=== PATIENT | female | born 1950 | race Caucasian/White ===

== ENCOUNTER 2017-04-22 08:02 | Emergency (ER) | payer MEDICARE, OTHER ==
[2017-04-22] MEDS ORDERED: Sodium Chloride 0.9% 1,000 ML IV STA (08:33)
--- NOTE | 2017-04-22 08:55 | ED PDOC ---
HPI: General Adult Time Seen by Provider: 04/22/17 08:14 Chief Complaint (Nursing): Back Pain Chief Complaint (Provider): Neck Pain Radiating to Back History Per: Patient History/Exam Limitations: no limitations Onset/Duration Of Symptoms: Days (x7 days) Current Symptoms Are (Timing): Still Present Additional Complaint(s): kaylah Menon, a 67 year old female, presents to the ED complaining of neck pain that radiates to the back x7 days. The patient states that in 2013 she had similar pains about her body but never in her neck. She reports that she has taken nothing for pain. Denies history of neck injuries. Past Medical History Reviewed: Historical Data, Nursing Documentation, Vital Signs Vital Signs: Last Vital Signs Temp 99 F 04/22/17 08:07 Pulse 91 H 04/22/17 08:07 Resp BP 132/71 04/22/17 08:07 Pulse Ox 99 04/22/17 11:23 - Medical History PMH: No Chronic Diseases - Surgical History Surgical History: Appendectomy - Family History Family History: States: Unknown Family Hx - Living Arrangements Living Arrangements: Alone - Social History Current smoker - smoking cessation education provided: No Ex-Smoker (has not smoked in the last 12 months): No Alcohol: None Drugs: Denies - Home Medications Home Medications: Ambulatory Orders Medication Instructions Recorded Acetaminophen [Tylenol 325mg tab] 650 mg PO Q6H PRN #50 tab 04/22/17 Cyclobenzaprine [Cyclobenzaprine 10 mg PO TID PRN #30 tab 04/22/17 HCl] - Allergies Allergies/Adverse Reactions: Allergies Allergy/AdvReac Type Severity Reaction Status Date / Time steroid AdvReac VOMITING Uncoded 03/14/16 11:59 Review of Systems ROS Statement: Except As Marked, All Systems Reviewed And Found Negative Musculoskeletal: Positive for: Neck Pain (neck pain radiating to back) Physical Exam - Reviewed Nursing Documentation Reviewed: Yes Vital Signs Reviewed: Yes - Physical Exam Appears: Positive for: Non-toxic (In mild discomfort due to pain in neck) Head Exam: Positive for: ATRAUMATIC, NORMAL INSPECTION, NORMOCEPHALIC Skin: Positive for: Normal Color, Warm, Dry. Negative for: Rash Eye Exam: Positive for: Normal appearance, EOMI, PERRL. Negative for: Nystagmus ENT: Positive for: Normal ENT Inspection. Negative for: Nasal Congestion, Tonsillar Exudate Neck: Positive for: Supple, Decreased ROM (decreased ROM seconday to pain), Pain On Movement Of Neck. Negative for: Normal (Palpable tenderness along Para spinal muscles of neck and trapezius), Painless ROM Cardiovascular/Chest: Positive for: Regular Rate, Rhythm, Chest Non Tender. Negative for: Tachycardia Respiratory: Positive for: Normal Breath Sounds. Negative for: Rales, Rhonchi, Wheezing, Respiratory Distress Gastrointestinal/Abdominal: Positive for: Normal Exam, Bowel Sounds, Soft. Negative for: Tenderness, Guarding, Rebound Back: Positive for: Normal Inspection. Negative for: L CVA Tenderness, R CVA Tenderness Extremity: Positive for: Normal ROM (Full ROM of all extremities). Negative for : Tenderness, Calf Tenderness, Deformity, Swelling Neurologic/Psych: Positive for: Alert, Oriented, Gait - Laboratory Results Result Diagrams: 04/22/17 08:55 04/22/17 08:55 - ECG O2 Sat by Pulse Oximetry: 99 (RA) Pulse Ox Interpretation: Normal Medical Decision Making Medical Decision Makin Initial Impression: 67 year old female presenting to ED with b/l neck pain radiating to back Initial Plan: * Basis Metabolic Panel * CBC * CT Cervical Spine Complete * flexeril 10mg PO * NS 1000mls IV 1000mls/hr * Toradol 30mg IVP * reevaluation * 11.05a - patient is feeling better. Able to move neck better. x-rays and labs reviewed will discharge Disposition - Clinical Impression Clinical Impression: OA (osteoarthritis) of neck - Patient ED Disposition Is Patient to be Admitted: No Doctor Will See Patient In The: Office Counseled Patient/Family Regarding: Need For Followup, Rx Given - Disposition Referrals: Hernandez Randall MD [Staff Provider] - Disposition: Routine/Home Disposition Time: 11:26 Condition: IMPROVED Prescriptions: Acetaminophen [Tylenol 325mg tab] 650 mg PO Q6H PRN #50 tab PRN Reason: Pain, Mild (1-3) Cyclobenzaprine [Cyclobenzaprine HCl] 10 mg PO TID PRN #30 tab PRN Reason: Pain, Moderate (4-7) Instructions: Arthritis (ED) Forms: [employer] (Al[place]ian) - POA Present On Arrival: Falls Or Trauma
[2017-04-22 09:17] LABS: BASO # 0.1 K/uL (0.0-0.2); BASO % 0.4 % (0.0-2.0); EOS % 0.2 % (0.0-4.0); HEMATOCRIT 36.6 % (34.0-47.0); LYMPH # 1.4 K/uL (1.0-4.3); LYMPH % 11.4 % (20.0-40.0); MEAN CELL VOLUME 88.3 fl (81.0-99.0); MEAN CORPUSCULAR HEMOGLOBIN 29.9 pg (27.0-31.0); MEAN CORPUSCULAR HGB CONC 33.9 g/dL (33.0-37.0); MEAN PLATELET VOLUME 6.7 fl (7.2-11.7); MONO # 1.4 K/uL (0.0-0.8); MONO % 10.9 % (0.0-10.0); NEUT # 9.6 K/uL (1.8-7.0); NEUT % 77.1 % (50.0-75.0); NRBC % 0.1 % (0.0-0.0); RED CELL DISTRIBUTION WIDTH 12.8 % (11.5-14.5); WHITE BLOOD COUNT 12.5 K/uL (4.8-10.8)
[2017-04-22 09:20] LABS: BLOOD UREA NITROGEN 10 mg/dl (7-17); CALCIUM 9.9 mg/dL (8.4-10.2); CARBON DIOXIDE 27 mmol/L (22-30); CHLORIDE 98 mmol/L (98-107); GFR AFRICAN-AMERICAN > 60; GLUCOSE,RANDOM 114 mg/dL (65-105); SODIUM 140 mmol/l (132-148)
--- NOTE | 2017-04-22 10:53 | RAD ---
PROCEDURE: Cervical Spine Radiographs. HISTORY: Pain. COMPARISON: None. FINDINGS: BONES: There is no evidence of acute displaced fracture. Mild reversal of the normal cervical lordosis noted likely due to advanced degenerative changes. DISC SPACES: Multilevel moderate to severe narrowing of the disc spaces noted more prominent at C3-C4. Multilevel osteophyte formation. SOFT TISSUES: Normal. No prevertebral soft tissue swelling. OTHER FINDINGS: None. IMPRESSION: No radiographic evidence of acute fracture. Advanced degenerative disc changes.
[2017-04-22 12:09] VITALS: BP 106/72; PULSE 77; RESP 16; TEMP 98.3; O2SAT 100
== END 2017-04-22 12:06 | disposition home or self-care (01) ==
LOC: H.ER 08:02
DX: M47.812 Spondylosis without myelopathy or radiculopathy, cervical region (principal)
CPT/HCPCS: 72052; 80048; 85025; 96361; 96374; 99284; J1885; J7040